=== PATIENT | female | born 1985 | race Caucasian/White ===

== ENCOUNTER 2020-06-22 11:06 | Emergency (ER) | payer BC, OTHER ==
[2020-06-22 12:07] LABS: HEMOGLOBIN 10.6 gm/dl (12.3-15.3); RED BLOOD COUNT 4.39 M/UL (4.00-5.10); WHITE BLOOD COUNT 14.6 K/UL (4.5-11.0)
[2020-06-22 12:50] LABS: BUN/CREATININE RATIO 18 (0-10)
[2020-06-22] MEDS ORDERED: MACROBID 100 M100 MG PO (17:25)
[2020-06-22] MEDS ORDERED: NAPROSYN500 MG PO (17:25)
== END 2020-06-22 17:38 | disposition home or self-care (01) ==
LOC: ER1 11:06
PROVIDERS: Family Medicine
DX: N83.202 Unspecified ovarian cyst, left side (principal); N30.90 Cystitis, unspecified without hematuria; N20.0 Calculus of kidney; F17.210 Nicotine dependence, cigarettes, uncomplicated; Z98.890 Other specified postprocedural states
CPT/HCPCS: 36415; 80053; 81001; 83605; 83690; 84703; 85025; 87077; 87086; 87186; 96374; 96375; 99284; J0696; J1885; J2405